=== PATIENT | male | born 1960 | race Caucasian/White ===

== ENCOUNTER 2017-08-27 10:36 | Observation (INO) ==
[2017-08-27] MEDS ORDERED: ENOXAPARIN 100 MG/ML SYRINGE SUBCUT STA (11:12)
[2017-08-27 11:28] LABS: Basophils # 0.1 10*3/uL (0.0-0.2); Basophils % 0.7 % (0.0-0.8); Eosinophils # 0.2 10*3/uL (0.0-0.87); Eosinophils % 3.5 % (0.00-10.9); Hemoglobin 11.9 GM/DL (14.0-18.0); Immature Granulocytes % 0.3 %; Immature Granulocytes Absolute 0.02 #; Lymphocytes % 14.1 % (21.2-54.2); Mean Corpuscular Hemoglobin 32 PG (27-34); Mean Corpuscular Volume 93.3 FL (87-102); Mean Platelet Volume 9.6 FL (9.6-12.0); Monocytes # 0.9 10*3/uL (0.11-0.8); Monocytes % 12.8 % (1.7-12.7); Neutrophils # 4.7 10*3/uL (1.4-7.4); Neutrophils % 68.6 % (38.7-73.9); Platelet Count 207 T/CUMM (130-400); Red Blood Count 3.75 MC/CUMM (3.8-5.5); Red Cell Distribution Width 12.9 % (9.3-17.3); White Blood Count 6.9 T/CUMM (4-12)
[2017-08-27] MEDS ORDERED: ENOXAPARIN 120 MG/0.8 ML SYRINGE SUBCUT ONE (11:45)
[2017-08-27 12:09] LABS: Bilirubin,Total 1.4 MG/DL (0.2-1.0); Calcium 10.2 MG/DL (8.5-10.1); Osmolality,Calculated 281.8 MOS/KG (273-304); Potassium 4.1 MMOL/L (3.5-5.1); Total Protein 7.6 G/DL (6.4-8.3)
[2017-08-27] MEDS ORDERED: MAGNESIUM SULF RIDER 4 GM in PREMIX 1 EACH IV PRN (14:04)
[2017-08-27] MEDS ORDERED: MAGNESIUM SULF RIDER 2 GM in PREMIX 1 EACH IV PRN (14:04)
[2017-08-27] MEDS ORDERED: ACETAMINOPHEN 325 MG TABLET PO PRN (14:24)
[2017-08-27] MEDS ORDERED: ZALEPLON 5 MG CAPSULE PO PRN (14:24)
[2017-08-27] MEDS ORDERED: ONDANSETRON 4 MG/2 ML VIAL IV PRN (14:24)
[2017-08-27] MEDS ORDERED: guaiFENesin/DM ER 600-30 MG TABLET PO PRN (14:24)
[2017-08-27] MEDS ORDERED: BISACODYL 5 MG TABLET PO PRN (14:24)
[2017-08-27 15:23] LABS: Troponin I Only < 0.015 NG/ML (0.00-0.045)
[2017-08-27] MEDS: SEVELAMER CARBONATE 800 MG TABLET PO SCH (17:15)
[2017-08-27] MEDS: NITROGLYCERIN 2% OINT 1 INCH/GM PACK TOP SCH (17:15)
[2017-08-27] MEDS: CINACALCET 30 MG TABLET PO SCH (17:15)
[2017-08-27 18:33] LABS: Troponin I Only < 0.015 NG/ML (0.00-0.045)
[2017-08-27] MEDS ORDERED: ATORVASTATIN 20 MG TABLET PO SCH (21:00)
[2017-08-27] MEDS ORDERED: DILTIAZEM CD 120 MG CAPSULE PO SCH (21:00)
[2017-08-27] MEDS: CARVEDILOL 6.25 MG TABLET PO SCH (21:41)
[2017-08-28] MEDS: NITROGLYCERIN 2% OINT 1 INCH/GM PACK TOP SCH ×2 (00:22→09:20)
[2017-08-28 06:01] LABS: Basophils # 0.1 10*3/uL (0.0-0.2); Basophils % 0.9 % (0.0-0.8); Eosinophils # 0.3 10*3/uL (0.0-0.87); Eosinophils % 4.4 % (0.00-10.9); Hematocrit 31.1 VOL% (42.0-52.0); Immature Granulocytes % 0.7 %; Immature Granulocytes Absolute 0.04 #; Lymphocytes # 1.2 10*3/uL (1.4-4.0); Lymphocytes % 20.3 % (21.2-54.2); Mean Corpuscular HGB Conc 35.4 GM/DL (32-36); Mean Corpuscular Hemoglobin 32 PG (27-34); Mean Corpuscular Volume 91.7 FL (87-102); Mean Platelet Volume 9.9 FL (9.6-12.0); Monocytes # 0.8 10*3/uL (0.11-0.8); Monocytes % 13.8 % (1.7-12.7); Neutrophils # 3.5 10*3/uL (1.4-7.4); Neutrophils % 59.9 % (38.7-73.9); Platelet Count 194 T/CUMM (130-400); Red Blood Count 3.39 MC/CUMM (3.8-5.5); Red Cell Distribution Width 12.7 % (9.3-17.3); White Blood Count 5.9 T/CUMM (4-12)
[2017-08-28 06:38] LABS: Calcium 9.1 MG/DL (8.5-10.1); Osmolality,Calculated 293.4 MOS/KG (273-304); Potassium 3.9 MMOL/L (3.5-5.1)
[2017-08-28 06:44] LABS: Risk Ratio 4.46; VLDL CHOLESTEROL 48.4 MG/DL
[2017-08-28 08:48] VITALS: BP 136/77
[2017-08-28] MEDS ORDERED: CLOPIDOGREL 75 MG TABLET PO SCH (09:00)
[2017-08-28] MEDS ORDERED: CINACALCET 30 MG TABLET PO SCH (09:00)
[2017-08-28] MEDS ORDERED: ASPIRIN EC 81 MG TABLET PO SCH (09:00)
[2017-08-28] MEDS ORDERED: PANTOPRAZOLE 40 MG TABLET PO SCH (09:00)
[2017-08-28] MEDS: CINACALCET 30 MG TABLET PO SCH ×2 (09:19→09:23)
[2017-08-28] MEDS: CARVEDILOL 6.25 MG TABLET PO SCH (09:19)
[2017-08-28] MEDS: SEVELAMER CARBONATE 800 MG TABLET PO SCH (09:19)
[2017-08-29] MEDS ORDERED: DILTIAZEM CD 120 MG CAPSULE PO SCH (09:00)
== END 2017-08-28 10:38 | disposition home or self-care (01) ==
LOC: N.EDINP 10:36 → N.ED 10:36 → N.EDINP 13:53 → N.TELES 13:59
PROVIDERS: ADMIT Internal Medicine Cardiovascular Disease; ATTEND Internal Medicine Cardiovascular Disease

== ENCOUNTER 2021-01-30 21:39 | Observation (INO) ==
[2021-01-30] MEDS ORDERED: ONDANSETRON 4 MG/2 ML VIAL ONE (22:10)
[2021-01-30] MEDS ORDERED: MORPHINE 2 MG/1 ML SYRINGE ONE (22:11)
[2021-01-30] MEDS ORDERED: HYDROmorphone 2 MG/1 ML VIAL ONE (22:14)
[2021-01-30] MEDS ORDERED: NITROGLYCERIN 2% OINT 1 INCH/GM PACK TOP STA (22:15)
[2021-01-30] MEDS ORDERED: ONDANSETRON 4 MG/2 ML VIAL IV STA (22:15)
[2021-01-30] MEDS ORDERED: HYDROmorphone 2 MG/1 ML VIAL IV STA (22:15)
[2021-01-30] MEDS ORDERED: ALUM/MAG/SIMETH/LIDO VISC 1:1 30 ML BOTTLE PO STA (22:15)
[2021-01-30 22:25] LABS: Basophils % 0.4 % (0.0-0.8); Eosinophils % 0.4 % (0.00-10.9); Hematocrit 29.2 VOL% (42.0-52.0); Hemoglobin 9.9 GM/DL (14.0-18.0); Immature Granulocytes % 0.8 %; Immature Granulocytes Absolute 0.02 #; Lymphocytes # 0.5 10*3/uL (1.4-4.0); Lymphocytes % 19.2 % (21.2-54.2); Mean Corpuscular HGB Conc 33.9 GM/DL (32-36); Mean Corpuscular Volume 94.2 FL (87-102); Mean Platelet Volume 10.1 FL (9.6-12.0); Monocytes % 15.1 % (1.7-12.7); Neutrophils % 64.1 % (38.7-73.9); Platelet Count 101 T/CUMM (130-400); Red Cell Distribution Width 12.2 % (9.3-17.3); White Blood Count 2.4 T/CUMM (4-12)
[2021-01-30 22:34] LABS: INR 1.1; PT Patient Result 11.8 SECS (10.5-12.0)
[2021-01-30 22:45] LABS: Calcium 8.4 MG/DL (8.5-10.1); Osmolality,Calculated 281.4 MOS/KG (273-304); Potassium 3.7 MMOL/L (3.5-5.1)
[2021-01-30] MEDS ORDERED: ZALEPLON 5 MG CAPSULE PO PRN (23:09)
[2021-01-30] MEDS ORDERED: PROMETHAZINE 25 MG TABLET PO PRN (23:09)
[2021-01-30] MEDS ORDERED: hydrALAZINE 20 MG/1 ML VIAL IV PRN (23:09)
[2021-01-30] MEDS ORDERED: GLUCAGON 1 MG VIAL IM PRN ×2 (23:09)
[2021-01-30] MEDS ORDERED: guaiFENesin/DM ER 600-30 MG TABLET PO PRN (23:09)
[2021-01-30] MEDS ORDERED: ALBUTEROL 2.5 MG/3 ML NEB RESP TX PRN (23:09)
[2021-01-30] MEDS ORDERED: NICOTINE 21 MG/24 HR PATCH TRANSDERM PRN (23:09)
[2021-01-30] MEDS ORDERED: ONDANSETRON 4 MG/2 ML VIAL IV PRN (23:09)
[2021-01-30] MEDS ORDERED: diphenhydrAMINE CAP 25 MG CAPSULE PO PRN (23:09)
[2021-01-30] MEDS ORDERED: DEXTROSE 50% 25 GM/50 ML VIAL IV PRN ×2 (23:09)
[2021-01-30] MEDS ORDERED: HYDROmorphone 2 MG/1 ML VIAL IV PRN (23:10)
[2021-01-30] MEDS ORDERED: NITROGLYCERIN SL 0.4 MG TABLET SL PRN (23:11)
[2021-01-31] MEDS: ATORVASTATIN 20 MG TABLET PO SCH ×2 (00:52→20:35)
[2021-01-31 06:12] LABS: Basophils % 0.5 % (0.0-0.8); Eosinophils % 0.5 % (0.00-10.9); Hematocrit 31.3 VOL% (42.0-52.0); Hemoglobin 10.4 GM/DL (14.0-18.0); Immature Granulocytes % 0.5 %; Immature Granulocytes Absolute 0.01 #; Lymphocytes # 0.5 10*3/uL (1.4-4.0); Lymphocytes % 27.5 % (21.2-54.2); Mean Corpuscular HGB Conc 33.2 GM/DL (32-36); Mean Corpuscular Volume 94.8 FL (87-102); Mean Platelet Volume 10.4 FL (9.6-12.0); Monocytes % 23.1 % (1.7-12.7); Neutrophils % 47.9 % (38.7-73.9); Platelet Count 72 T/CUMM (130-400); Red Cell Distribution Width 12.1 % (9.3-17.3); White Blood Count 1.8 T/CUMM (4-12)
[2021-01-31 06:37] LABS: Anisocytosis 1+; Atypical Lymphocytes Few; Band Neutrophils 14 % (0-10); Lymphocytes 26 % (20-55); Nucleated Red Blood Cells 3 (0-5); Platelet Estimate Decreased; Segmented Neutrophils 43 % (50-85); Total Cells Counted 100
[2021-01-31 06:50] LABS: Calcium 8.8 MG/DL (8.5-10.1); Potassium 3.9 MMOL/L (3.5-5.1); Risk Ratio 5.37; VLDL Cholesterol 32.8 MG/DL
[2021-01-31] MEDS: PANTOPRAZOLE 40 MG TABLET PO SCH (08:57)
[2021-01-31] MEDS: ASPIRIN EC 325 MG TABLET PO SCH (08:57)
[2021-01-31] MEDS: carvediloL 6.25 MG TABLET PO SCH ×2 (08:57→20:36)
[2021-01-31] MEDS: HEPARIN 5,000 UNIT/1 ML VIAL SUBCUT SCH ×2 (08:58→20:37)
[2021-01-31] MEDS: BISACODYL 5 MG TABLET PO SCH (08:58)
[2021-01-31] MEDS: CINACALCET 30 MG TABLET PO SCH (08:59)
[2021-01-31] MEDS: INSULIN LISPRO 100 UNIT/ML SUBCUT SCH ×4 (09:58→20:00)
[2021-01-31] MEDS ORDERED: SODIUM CHLORIDE 0.9% 500 ML IV ONE (13:36)
[2021-01-31] MEDS ORDERED: VANCOMYCIN INJ 1,000 MG in SODIUM CHLORIDE 0.9% 250 ML IV SCH (14:00)
[2021-01-31] MEDS ORDERED: VANCOMYCIN INJ 2,500 MG in SODIUM CHLORIDE 0.9% 500 ML IV ONE (15:00)
[2021-01-31] MEDS: cefTRIAXone 2,000 MG in SODIUM CHLORIDE 0.9% 100 ML IV SCH (15:30)
[2021-01-31] MEDS: RENVELA PO SCH (16:49)
[2021-01-31] MEDS: AZITHROMYCIN INJ 500 MG in SODIUM CHLORIDE 0.9% 250 ML IV SCH (16:50)
[2021-01-31] MEDS ORDERED: SEVELAMER CARBONATE 800 MG TABLET PO SCH (17:00)
[2021-02-01 06:28] LABS: Basophils % 0.6 % (0.0-0.8); Eosinophils % 1.2 % (0.00-10.9); Hematocrit 26.8 VOL% (42.0-52.0); Hemoglobin 9.1 GM/DL (14.0-18.0); Immature Granulocytes % 0.6 %; Immature Granulocytes Absolute 0.01 #; Lymphocytes # 0.3 10*3/uL (1.4-4.0); Lymphocytes % 17.9 % (21.2-54.2); Mean Platelet Volume 10.6 FL (9.6-12.0); Monocytes % 9.2 % (1.7-12.7); Neutrophils % 70.5 % (38.7-73.9); Platelet Count 68 T/CUMM (130-400); Red Blood Count 2.82 MC/CUMM (3.8-5.5); Red Cell Distribution Width 12.3 % (9.3-17.3); White Blood Count 1.7 T/CUMM (4-12)
[2021-02-01 06:58] LABS: Calcium 9.4 MG/DL (8.5-10.1); Osmolality,Calculated 282.8 MOS/KG (273-304); Potassium 4.9 MMOL/L (3.5-5.1)
[2021-02-01 07:21] LABS: Eosinophils 2 % (0-10); Lymphocytes 19 % (20-55); Platelet Estimate Decreased; Segmented Neutrophils 73 % (50-85); Total Cells Counted 100
[2021-02-01] MEDS: RENVELA PO SCH ×3 (08:21→18:22)
[2021-02-01] MEDS: ASPIRIN EC 325 MG TABLET PO SCH (08:22)
[2021-02-01] MEDS: BISACODYL 5 MG TABLET PO SCH (08:23)
[2021-02-01] MEDS: PANTOPRAZOLE 40 MG TABLET PO SCH (08:23)
[2021-02-01] MEDS: INSULIN LISPRO 100 UNIT/ML SUBCUT SCH ×4 (08:24→21:05)
[2021-02-01] MEDS: carvediloL 6.25 MG TABLET PO SCH ×2 (08:24→21:04)
[2021-02-01 09:42] LABS: Albumin 2.8 G/DL (3.4-5.0); Bilirubin,Total 0.4 MG/DL (0.20-1.00); Calcium 9.1 MG/DL (8.5-10.1); Osmolality,Calculated 282.8 MOS/KG (273-304); Potassium 4.9 MMOL/L (3.5-5.1); Total Protein 6.2 G/DL (6.4-8.2)
[2021-02-01] MEDS: CINACALCET 30 MG TABLET PO SCH (14:10)
[2021-02-01] MEDS: HEPARIN 5,000 UNIT/1 ML VIAL SUBCUT SCH ×2 (14:10→21:04)
[2021-02-01] MEDS: cefTRIAXone 2,000 MG in SODIUM CHLORIDE 0.9% 100 ML IV SCH (14:12)
[2021-02-01] MEDS: AZITHROMYCIN INJ 500 MG in SODIUM CHLORIDE 0.9% 250 ML IV SCH (15:49)
[2021-02-01] MEDS ORDERED: VANCOMYCIN INJ 750 MG in SODIUM CHLORIDE 0.9% 250 ML IV ONE (17:00)
[2021-02-01] MEDS ORDERED: VANCOMYCIN INJ 750 MG in SODIUM CHLORIDE 0.9% 250 ML IV PRN (18:00)
[2021-02-01] MEDS: CYPROHEPTADINE 4 MG TABLET PO SCH (21:04)
[2021-02-01] MEDS: LUBIPROSTONE 8 MCG CAPSULE PO SCH (21:04)
[2021-02-01] MEDS: DOCUSATE SODIUM 100 MG CAPSULE PO SCH (21:04)
[2021-02-01] MEDS: ATORVASTATIN 20 MG TABLET PO SCH (21:04)
[2021-02-01] MEDS: POLYETHYLENE GLYCOL POWDER 17 GM PACK PO SCH (21:15)
[2021-02-01] MEDS: ACETAMINOPHEN 325 MG TABLET PO PRN (23:08)
[2021-02-02 06:37] LABS: Basophils % 0.6 % (0.0-0.8); Hematocrit 27.1 VOL% (42.0-52.0); Hemoglobin 8.7 GM/DL (14.0-18.0); Immature Granulocytes % 1.2 %; Immature Granulocytes Absolute 0.02 #; Lymphocytes # 0.3 10*3/uL (1.4-4.0); Lymphocytes % 19.1 % (21.2-54.2); Mean Corpuscular HGB Conc 32.1 GM/DL (32-36); Mean Corpuscular Volume 96.8 FL (87-102); Mean Platelet Volume 10.7 FL (9.6-12.0); Monocytes % 8.7 % (1.7-12.7); Neutrophils % 70.4 % (38.7-73.9); Red Cell Distribution Width 12.3 % (9.3-17.3); White Blood Count 1.7 T/CUMM (4-12)
[2021-02-02 06:45] LABS: Platelet Count 79 T/CUMM (130-400)
[2021-02-02 06:54] LABS: Calcium 8.7 MG/DL (8.5-10.1); Osmolality,Calculated 280.8 MOS/KG (273-304); Potassium 4.4 MMOL/L (3.5-5.1)
[2021-02-02 06:58] LABS: Hypochromasia 1+; Microcytosis 1+; Platelet Estimate Decreased
[2021-02-02 07:13] LABS: % Iron Saturation 19.1 % (18-50); Ferritin 2454.1 ng/ml (26-388)
[2021-02-02 07:21] LABS: Vitamin B12 513 PG/ML (211-911)
[2021-02-02 07:52] LABS: Sedimentation Rate-Westergren 80 MM/HR (0-20)
[2021-02-02] MEDS: INSULIN LISPRO 100 UNIT/ML SUBCUT SCH ×4 (08:02→21:41)
[2021-02-02] MEDS: DOCUSATE SODIUM 100 MG CAPSULE PO SCH ×2 (08:41→21:41)
[2021-02-02] MEDS: POLYETHYLENE GLYCOL POWDER 17 GM PACK PO SCH ×2 (08:41→21:41)
[2021-02-02] MEDS: RENVELA PO SCH ×3 (08:41→16:43)
[2021-02-02] MEDS: PANTOPRAZOLE 40 MG TABLET PO SCH (08:42)
[2021-02-02] MEDS: BISACODYL 5 MG TABLET PO SCH (08:42)
[2021-02-02] MEDS: CINACALCET 30 MG TABLET PO SCH (08:42)
[2021-02-02] MEDS: CYPROHEPTADINE 4 MG TABLET PO SCH ×2 (08:43→21:39)
[2021-02-02] MEDS: ASPIRIN EC 325 MG TABLET PO SCH (08:43)
[2021-02-02] MEDS: carvediloL 6.25 MG TABLET PO SCH ×2 (08:43→21:40)
[2021-02-02] MEDS: HEPARIN 5,000 UNIT/1 ML VIAL SUBCUT SCH ×2 (08:43→21:41)
[2021-02-02] MEDS: LUBIPROSTONE 8 MCG CAPSULE PO SCH (08:49)
[2021-02-02] MEDS: LINACLOTIDE 145 MCG CAPSULE PO SCH (08:50)
[2021-02-02] MEDS: cefTRIAXone 2,000 MG in SODIUM CHLORIDE 0.9% 100 ML IV SCH (15:28)
[2021-02-02] MEDS: AZITHROMYCIN INJ 500 MG in SODIUM CHLORIDE 0.9% 250 ML IV SCH (16:41)
[2021-02-02] MEDS: ACETAMINOPHEN 325 MG TABLET PO PRN (21:39)
[2021-02-02] MEDS: ATORVASTATIN 20 MG TABLET PO SCH (21:40)
[2021-02-03 05:07] LABS: Calcium 8.4 MG/DL (8.5-10.1); Potassium 4.1 MMOL/L (3.5-5.1)
[2021-02-03 05:12] LABS: Basophils % 0.5 % (0.0-0.8); Hematocrit 26.9 VOL% (42.0-52.0); Immature Granulocytes % 1.1 %; Immature Granulocytes Absolute 0.02 #; Lymphocytes # 0.4 10*3/uL (1.4-4.0); Lymphocytes % 18.9 % (21.2-54.2); Mean Corpuscular HGB Conc 33.5 GM/DL (32-36); Mean Corpuscular Volume 95.1 FL (87-102); Mean Platelet Volume 10.8 FL (9.6-12.0); Monocytes % 10.5 % (1.7-12.7); Platelet Count 69 T/CUMM (130-400); Red Blood Count 2.83 MC/CUMM (3.8-5.5); Red Cell Distribution Width 12.2 % (9.3-17.3); White Blood Count 1.9 T/CUMM (4-12)
[2021-02-03 05:39] LABS: Lymphocytes 15 % (20-55); Platelet Estimate Decreased; Segmented Neutrophils 79 % (50-85); Total Cells Counted 100
[2021-02-03] MEDS: LUBIPROSTONE 8 MCG CAPSULE PO SCH (07:34)
[2021-02-03] MEDS: INSULIN LISPRO 100 UNIT/ML SUBCUT SCH ×2 (08:13→11:13)
[2021-02-03] MEDS: carvediloL 6.25 MG TABLET PO SCH (08:39)
[2021-02-03] MEDS: POLYETHYLENE GLYCOL POWDER 17 GM PACK PO SCH (08:39)
[2021-02-03] MEDS: CYPROHEPTADINE 4 MG TABLET PO SCH (08:44)
[2021-02-03] MEDS: BISACODYL 5 MG TABLET PO SCH ×2 (08:44→08:52)
[2021-02-03] MEDS: ASPIRIN EC 325 MG TABLET PO SCH (08:44)
[2021-02-03] MEDS: RENVELA PO SCH ×2 (08:44→11:15)
[2021-02-03] MEDS: CINACALCET 30 MG TABLET PO SCH (08:44)
[2021-02-03] MEDS: HEPARIN 5,000 UNIT/1 ML VIAL SUBCUT SCH (08:44)
[2021-02-03] MEDS: LINACLOTIDE 145 MCG CAPSULE PO SCH (08:44)
[2021-02-03] MEDS: PANTOPRAZOLE 40 MG TABLET PO SCH (08:44)
[2021-02-03] MEDS: DOCUSATE SODIUM 100 MG CAPSULE PO SCH ×2 (08:44→08:51)
[2021-02-03 11:28] VITALS: BP 105/43
[2021-02-03] MEDS: ACETAMINOPHEN 325 MG TABLET PO PRN (12:02)
[2021-02-03] MEDS ORDERED: LEVOFLOXACIN 500 MG TABLET PO SCH (13:00)
[2021-02-03] MEDS ORDERED: carvediloL 3.125 MG TABLET PO SCH (21:00)
[2021-02-04 12:05] LABS: Hemoglobin A1 (Alkaline) 96.5 % (96.5-98.5); Hemoglobin A2 (Alkaline) 3.5 % (1.5-3.5)
[2021-02-06 11:27] LABS: 25-Hydroxy D Total 38 ng/mL; 25-Hydroxy D2 < 4.0 ng/mL; 25-Hydroxy D3 38 ng/mL
== END 2021-02-03 13:37 | disposition home or self-care (01) ==
LOC: EDBD → EDUNIT# → N.EDINP 21:39 → N.ED 21:39 → N.EDINP 01-31 01:00 → N.TELEN 01-31 01:42 → SUATTDRO 01-31 14:59
PROVIDERS: ADMIT Internal Medicine; ATTEND Hospitalist

== ENCOUNTER 2021-02-06 15:11 | Inpatient (IN) ==
[2021-02-06] MEDS ORDERED: SODIUM CHLORIDE 0.9% 1,000 ML IV STA (16:00)
[2021-02-06 16:12] LABS: Basophils % 0.3 % (0.0-0.8); Hematocrit 32.8 VOL% (42.0-52.0); Hemoglobin 10.9 GM/DL (14.0-18.0); Immature Granulocytes % 1.3 %; Immature Granulocytes Absolute 0.05 #; Lymphocytes # 0.2 10*3/uL (1.4-4.0); Lymphocytes % 4.8 % (21.2-54.2); Mean Corpuscular HGB Conc 33.2 GM/DL (32-36); Mean Corpuscular Volume 94.3 FL (87-102); Monocytes % 4.5 % (1.7-12.7); Neutrophils % 89.1 % (38.7-73.9); Platelet Count 145 T/CUMM (130-400); Red Blood Count 3.48 MC/CUMM (3.8-5.5); Red Cell Distribution Width 12.4 % (9.3-17.3)
[2021-02-06] MEDS ORDERED: AZITHROMYCIN 250 MG TABLET PO STA (16:12)
[2021-02-06] MEDS ORDERED: cefTRIAXone 1,000 MG in SODIUM CHLORIDE 0.9% 100 ML IV STA (16:12)
[2021-02-06] MEDS ORDERED: ACETAMINOPHEN 500 MG TABLET ONE (16:14)
[2021-02-06 16:39] LABS: Albumin 2.9 G/DL (3.4-5.0); Bilirubin,Total 0.5 MG/DL (0.20-1.00); Calcium 9.8 MG/DL (8.5-10.1); Osmolality,Calculated 274.8 MOS/KG (273-304); Potassium 3.3 MMOL/L (3.5-5.1); Total Protein 7.6 G/DL (6.4-8.2)
[2021-02-06 17:09] LABS: Band Neutrophils 5 % (0-10); Lymphocytes 4 % (20-55); Segmented Neutrophils 87 % (50-85); Total Cells Counted 100
[2021-02-06 17:10] LABS: Anisocytosis Slight; Atypical Lymphocytes 1+; Macrocytosis Slight; Microcytosis Slight; Platelet Estimate Adequate
[2021-02-06] MEDS ORDERED: DEXTROSE 50% 25 GM/50 ML VIAL IV PRN (17:40)
[2021-02-06] MEDS ORDERED: ONDANSETRON 4 MG/2 ML VIAL IV PRN (17:40)
[2021-02-06] MEDS ORDERED: GLUCAGON 1 MG VIAL IM PRN (17:40)
[2021-02-06] MEDS ORDERED: LEVOFLOXACIN INJ 750 MG/150 ML PREMIX IV ONE (17:49)
[2021-02-06] MEDS ORDERED: PIPERACILLIN/TAZOBACTAM 2,250 MG in SODIUM CHLORIDE 0.9% 100 ML IV SCH (18:00)
[2021-02-06] MEDS ORDERED: POLYETHYLENE GLYCOL POWDER 17 GM PACK PO PRN (18:01)
[2021-02-06] MEDS ORDERED: POTASSIUM CHLORIDE 20 MEQ TABLET PO PRN (18:01)
[2021-02-06 18:25] LABS: ABG Base Excess 8.5 MMOL/L (-2.5-2.5); ABG HCO3 32.2 MMOL/L (20-26); ABG Oxygen Saturation 91.6 % (95-100); ABG PCO2 37.1 MM HG (35-48); ABG PO2 60.2 MM HG (80-95)
[2021-02-06] MEDS: HEPARIN 5,000 UNIT/1 ML VIAL SUBCUT SCH (19:46)
[2021-02-06] MEDS: ALBUTEROL/IPRATROPIUM 3 ML NEB RESP TX SCH (19:49)
[2021-02-06] MEDS: ATORVASTATIN 20 MG TABLET PO SCH (22:45)
[2021-02-06] MEDS: PIPERACILLIN/TAZOBACTAM 3,375 MG in SODIUM CHLORIDE 0.9% 100 ML IV SCH (22:45)
[2021-02-06] MEDS: DOCUSATE SODIUM 100 MG CAPSULE PO SCH (22:45)
[2021-02-06] MEDS: carvediloL 3.125 MG TABLET PO SCH (22:46)
[2021-02-06] MEDS: ACETAMINOPHEN 325 MG TABLET PO PRN (23:50)
[2021-02-07] MEDS: ALBUTEROL/IPRATROPIUM 3 ML NEB RESP TX SCH ×4 (00:39→18:22)
[2021-02-07 05:04] LABS: Basophils % 0.3 % (0.0-0.8); Hematocrit 26.4 VOL% (42.0-52.0); Immature Granulocytes % 2.5 %; Lymphocytes # 0.4 10*3/uL (1.4-4.0); Lymphocytes % 9.4 % (21.2-54.2); Mean Corpuscular Volume 94.3 FL (87-102); Mean Platelet Volume 10.2 FL (9.6-12.0); Monocytes % 5.3 % (1.7-12.7); Neutrophils % 82.5 % (38.7-73.9); Platelet Count 149 T/CUMM (130-400); Red Cell Distribution Width 12.4 % (9.3-17.3)
[2021-02-07 05:06] LABS: Hemoglobin 8.7 GM/DL (14.0-18.0)
[2021-02-07 05:16] LABS: Hypochromasia 1+; Lymphocytes 7 % (20-55); Microcytosis 1+; Nucleated Red Blood Cells 1 (0-5); Platelet Estimate Adequate; Segmented Neutrophils 89 % (50-85); Total Cells Counted 100
[2021-02-07 05:20] LABS: Calcium 9.6 MG/DL (8.5-10.1); Osmolality,Calculated 279.7 MOS/KG (273-304); Potassium 4.2 MMOL/L (3.5-5.1)
[2021-02-07] MEDS: HEPARIN 5,000 UNIT/1 ML VIAL SUBCUT SCH ×2 (05:31→18:21)
[2021-02-07] MEDS: PIPERACILLIN/TAZOBACTAM 3,375 MG in SODIUM CHLORIDE 0.9% 100 ML IV SCH (08:15)
[2021-02-07] MEDS: SEVELAMER CARBONATE 800 MG TABLET PO SCH ×4 (08:15→19:34)
[2021-02-07] MEDS: PANTOPRAZOLE 40 MG TABLET PO SCH (09:29)
[2021-02-07] MEDS: ASPIRIN EC 81 MG TABLET PO SCH (09:30)
[2021-02-07] MEDS: DOCUSATE SODIUM 100 MG CAPSULE PO SCH ×2 (09:30→20:41)
[2021-02-07] MEDS: carvediloL 3.125 MG TABLET PO SCH ×2 (09:31→20:41)
[2021-02-07] MEDS: LINACLOTIDE 145 MCG CAPSULE PO SCH (09:31)
[2021-02-07] MEDS: cefTRIAXone 1,000 MG in SODIUM CHLORIDE 0.9% 100 ML IV SCH (16:54)
[2021-02-07] MEDS: AZITHROMYCIN INJ 500 MG in SODIUM CHLORIDE 0.9% 250 ML IV SCH (18:21)
[2021-02-07] MEDS: ACETAMINOPHEN 325 MG TABLET PO PRN (20:41)
[2021-02-07] MEDS: ATORVASTATIN 20 MG TABLET PO SCH (20:41)
[2021-02-08] MEDS: ALBUTEROL/IPRATROPIUM 3 ML NEB RESP TX SCH ×4 (01:03→19:51)
[2021-02-08 05:18] LABS: Bacteria,Urine Occasional /HPF (Few); Bilirubin,Urine Negative (Negative); Blood, Urine Negative (Negative); Glucose,Urine (UA) 50 mg/dL (Negative); Ketones,Urine Negative (Negative); Nitrite,Urine Negative (Negative); Protein,Urine >=500 MG/DL; RBC,Urine 2 /HPF (0-4); Urine Appearance CLOUDY (Clear); Urine Color Yellow (Yellow); Urine Specific Gravity 1.012 (1.001-1.035); Urine Urobilinogen < 2.0 EU/DL (0.2-1.0)
[2021-02-08] MEDS: HEPARIN 5,000 UNIT/1 ML VIAL SUBCUT SCH ×2 (05:50→17:04)
[2021-02-08] MEDS: ASPIRIN EC 81 MG TABLET PO SCH (08:58)
[2021-02-08] MEDS: carvediloL 3.125 MG TABLET PO SCH ×2 (08:58→20:55)
[2021-02-08] MEDS: PANTOPRAZOLE 40 MG TABLET PO SCH (08:58)
[2021-02-08] MEDS: ACETAMINOPHEN 325 MG TABLET PO PRN ×2 (09:01→16:58)
[2021-02-08] MEDS: LINACLOTIDE 145 MCG CAPSULE PO SCH (09:41)
[2021-02-08] MEDS: DOCUSATE SODIUM 100 MG CAPSULE PO SCH ×2 (09:41→20:59)
[2021-02-08] MEDS: SEVELAMER CARBONATE 800 MG TABLET PO SCH ×3 (09:41→16:35)
[2021-02-08] MEDS: cefTRIAXone 1,000 MG in SODIUM CHLORIDE 0.9% 100 ML IV SCH (16:34)
[2021-02-08] MEDS: AZITHROMYCIN INJ 500 MG in SODIUM CHLORIDE 0.9% 250 ML IV SCH (17:07)
[2021-02-08] MEDS ORDERED: LEVOFLOXACIN INJ 500 MG/100 ML PREMIX IV SCH (18:00)
[2021-02-08] MEDS: ATORVASTATIN 20 MG TABLET PO SCH (20:55)
[2021-02-09 05:48] LABS: Basophils % 0.2 % (0.0-0.8); Eosinophils % 0.2 % (0.00-10.9); Hematocrit 25.8 VOL% (42.0-52.0); Hemoglobin 8.4 GM/DL (14.0-18.0); Immature Granulocytes Absolute 0.12 #; Lymphocytes # 0.3 10*3/uL (1.4-4.0); Lymphocytes % 7.7 % (21.2-54.2); Mean Corpuscular HGB Conc 32.6 GM/DL (32-36); Mean Corpuscular Volume 96.3 FL (87-102); Monocytes % 5.7 % (1.7-12.7); Neutrophils % 83.2 % (38.7-73.9); Platelet Count 197 T/CUMM (130-400); Red Blood Count 2.68 MC/CUMM (3.8-5.5); Red Cell Distribution Width 12.7 % (9.3-17.3)
[2021-02-09 06:20] LABS: Calcium 9.8 MG/DL (8.5-10.1); Osmolality,Calculated 281.7 MOS/KG (273-304); Potassium 3.9 MMOL/L (3.5-5.1)
[2021-02-09] MEDS: HEPARIN 5,000 UNIT/1 ML VIAL SUBCUT SCH ×2 (06:25→17:32)
[2021-02-09] MEDS: ALBUTEROL/IPRATROPIUM 3 ML NEB RESP TX SCH ×4 (07:09→19:28)
[2021-02-09] MEDS: SEVELAMER CARBONATE 800 MG TABLET PO SCH ×3 (08:08→16:01)
[2021-02-09] MEDS: carvediloL 3.125 MG TABLET PO SCH ×2 (08:09→21:39)
[2021-02-09] MEDS: PANTOPRAZOLE 40 MG TABLET PO SCH (08:09)
[2021-02-09] MEDS: ASPIRIN EC 81 MG TABLET PO SCH (08:09)
[2021-02-09] MEDS: DOCUSATE SODIUM 100 MG CAPSULE PO SCH ×2 (08:37→21:44)
[2021-02-09] MEDS: LINACLOTIDE 145 MCG CAPSULE PO SCH (08:37)
[2021-02-09] MEDS: FLUCONAZOLE INJ 100 MG/50 ML PREMIX IV SCH (11:12)
[2021-02-09] MEDS: ACETAMINOPHEN 325 MG TABLET PO PRN ×2 (11:29→21:39)
[2021-02-09] MEDS: cefTRIAXone 1,000 MG in SODIUM CHLORIDE 0.9% 100 ML IV SCH (16:00)
[2021-02-09] MEDS: AZITHROMYCIN INJ 500 MG in SODIUM CHLORIDE 0.9% 250 ML IV SCH (16:40)
[2021-02-09] MEDS: ATORVASTATIN 20 MG TABLET PO SCH (21:39)
[2021-02-10] MEDS: ALBUTEROL/IPRATROPIUM 3 ML NEB RESP TX SCH ×4 (00:35→19:12)
[2021-02-10] MEDS: HEPARIN 5,000 UNIT/1 ML VIAL SUBCUT SCH ×2 (06:11→17:10)
[2021-02-10 06:41] LABS: Basophils % 0.3 % (0.0-0.8); Eosinophils % 0.7 % (0.00-10.9); Hematocrit 24.5 VOL% (42.0-52.0); Hemoglobin 8.1 GM/DL (14.0-18.0); Immature Granulocytes Absolute 0.09 #; Lymphocytes # 0.4 10*3/uL (1.4-4.0); Lymphocytes % 13.1 % (21.2-54.2); Mean Corpuscular HGB Conc 33.1 GM/DL (32-36); Mean Platelet Volume 9.8 FL (9.6-12.0); Monocytes % 6.2 % (1.7-12.7); Neutrophils % 76.7 % (38.7-73.9); Platelet Count 205 T/CUMM (130-400); Red Blood Count 2.58 MC/CUMM (3.8-5.5); Red Cell Distribution Width 12.4 % (9.3-17.3); White Blood Count 3.1 T/CUMM (4-12)
[2021-02-10 07:00] LABS: Potassium 3.9 MMOL/L (3.5-5.1)
[2021-02-10] MEDS: ASPIRIN EC 81 MG TABLET PO SCH (09:29)
[2021-02-10] MEDS: carvediloL 3.125 MG TABLET PO SCH ×2 (09:30→20:55)
[2021-02-10] MEDS: PANTOPRAZOLE 40 MG TABLET PO SCH (09:30)
[2021-02-10] MEDS: SEVELAMER CARBONATE 800 MG TABLET PO SCH ×3 (09:41→16:48)
[2021-02-10] MEDS: DOCUSATE SODIUM 100 MG CAPSULE PO SCH ×2 (09:41→20:57)
[2021-02-10] MEDS: LINACLOTIDE 145 MCG CAPSULE PO SCH (09:41)
[2021-02-10 11:06] LABS: Lymphocytes 10 % (20-55); Platelet Estimate Normal; Segmented Neutrophils 84 % (50-85); Total Cells Counted 100
[2021-02-10] MEDS: FLUCONAZOLE INJ 100 MG/50 ML PREMIX IV SCH (12:08)
[2021-02-10] MEDS: cefTRIAXone 1,000 MG in SODIUM CHLORIDE 0.9% 100 ML IV SCH (15:50)
[2021-02-10] MEDS: AZITHROMYCIN INJ 500 MG in SODIUM CHLORIDE 0.9% 250 ML IV SCH (15:50)
[2021-02-10] MEDS: methylPREDNISolone SOD SUC 40 MG/1 ML VIAL IV SCH ×2 (17:10→22:06)
[2021-02-10] MEDS: ATORVASTATIN 20 MG TABLET PO SCH (20:55)
[2021-02-11] MEDS: ALBUTEROL/IPRATROPIUM 3 ML NEB RESP TX SCH ×4 (00:46→19:15)
[2021-02-11] MEDS: methylPREDNISolone SOD SUC 40 MG/1 ML VIAL IV SCH ×4 (05:49→22:01)
[2021-02-11] MEDS: HEPARIN 5,000 UNIT/1 ML VIAL SUBCUT SCH ×2 (05:49→17:17)
[2021-02-11] MEDS: ASPIRIN EC 81 MG TABLET PO SCH (08:12)
[2021-02-11] MEDS: carvediloL 3.125 MG TABLET PO SCH ×2 (08:12→20:14)
[2021-02-11] MEDS: SEVELAMER CARBONATE 800 MG TABLET PO SCH ×3 (08:12→17:16)
[2021-02-11] MEDS: PANTOPRAZOLE 40 MG TABLET PO SCH (08:12)
[2021-02-11] MEDS: DOCUSATE SODIUM 100 MG CAPSULE PO SCH ×2 (08:19→20:15)
[2021-02-11] MEDS: LINACLOTIDE 145 MCG CAPSULE PO SCH (08:19)
[2021-02-11] MEDS: FLUCONAZOLE INJ 100 MG/50 ML PREMIX IV SCH (16:18)
[2021-02-11] MEDS: cefTRIAXone 1,000 MG in SODIUM CHLORIDE 0.9% 100 ML IV SCH (17:18)
[2021-02-11] MEDS: AZITHROMYCIN INJ 500 MG in SODIUM CHLORIDE 0.9% 250 ML IV SCH (18:02)
[2021-02-11] MEDS: ATORVASTATIN 20 MG TABLET PO SCH (20:14)
[2021-02-11 22:20] LABS: ABG Base Excess 4.7 MMOL/L (-2.5-2.5); ABG HCO3 26.4 MMOL/L (20-26); ABG PCO2 30.7 MM HG (35-48); ABG PH 7.552 (7.35-7.45); ABG PO2 54.1 MM HG (80-95); ABG TCO2 27.3 MMOL/L (23-27)
[2021-02-11 22:22] LABS: ABG Oxygen Saturation 92.2 % (95-100)
[2021-02-12] MEDS: ACETAMINOPHEN 325 MG TABLET PO PRN ×2 (00:01→22:13)
[2021-02-12] MEDS: ALBUTEROL/IPRATROPIUM 3 ML NEB RESP TX SCH ×4 (00:20→18:12)
[2021-02-12] MEDS: methylPREDNISolone SOD SUC 40 MG/1 ML VIAL IV SCH ×3 (06:53→16:59)
[2021-02-12] MEDS: HEPARIN 5,000 UNIT/1 ML VIAL SUBCUT SCH ×2 (06:55→17:24)
[2021-02-12] MEDS: ASPIRIN EC 81 MG TABLET PO SCH (08:13)
[2021-02-12] MEDS: SEVELAMER CARBONATE 800 MG TABLET PO SCH ×3 (08:13→16:59)
[2021-02-12] MEDS: PANTOPRAZOLE 40 MG TABLET PO SCH (08:13)
[2021-02-12] MEDS: carvediloL 3.125 MG TABLET PO SCH ×2 (08:13→20:57)
[2021-02-12] MEDS: DOCUSATE SODIUM 100 MG CAPSULE PO SCH ×2 (08:13→20:59)
[2021-02-12] MEDS: LINACLOTIDE 145 MCG CAPSULE PO SCH (09:09)
[2021-02-12 09:28] LABS: ABG HCO3 26.1 MMOL/L (20-26); ABG Oxygen Saturation 93.1 % (95-100); ABG PH 7.488 (7.35-7.45); ABG PO2 68.8 MM HG (80-95); ABG TCO2 23.1 MMOL/L (23-27)
[2021-02-12 10:28] LABS: Hematocrit 26.7 VOL% (42.0-52.0); Hemoglobin 8.8 GM/DL (14.0-18.0); Immature Granulocytes Absolute 0.18 #; Lymphocytes # 0.3 10*3/uL (1.4-4.0); Lymphocytes % 4.9 % (21.2-54.2); Mean Corpuscular Volume 94.3 FL (87-102); Mean Platelet Volume 9.8 FL (9.6-12.0); Monocytes % 4.1 % (1.7-12.7); Platelet Count 296 T/CUMM (130-400); Red Blood Count 2.83 MC/CUMM (3.8-5.5); Red Cell Distribution Width 12.2 % (9.3-17.3); White Blood Count 6.1 T/CUMM (4-12)
[2021-02-12 10:43] LABS: Calcium 11.1 MG/DL (8.5-10.1); Osmolality,Calculated 290.1 MOS/KG (273-304)
[2021-02-12 10:49] LABS: Band Neutrophils 1 % (0-10); Hypochromasia 1+; Lymphocytes 3 % (20-55); Microcytosis 1+; Nucleated Red Blood Cells 1 (0-5); Platelet Estimate Adequate; Segmented Neutrophils 95 % (50-85); Total Cells Counted 100
[2021-02-12 11:12] LABS: Ferritin 4082.2 ng/ml (26-388)
[2021-02-12] MEDS: FLUCONAZOLE INJ 100 MG/50 ML PREMIX IV SCH (12:05)
[2021-02-12] MEDS: cefTRIAXone 1,000 MG in SODIUM CHLORIDE 0.9% 100 ML IV SCH (16:18)
[2021-02-12] MEDS: ATORVASTATIN 20 MG TABLET PO SCH (20:57)
[2021-02-13] MEDS: methylPREDNISolone SOD SUC 40 MG/1 ML VIAL IV SCH ×5 (00:32→22:47)
[2021-02-13] MEDS: ALBUTEROL/IPRATROPIUM 3 ML NEB RESP TX SCH (00:45)
[2021-02-13 04:15] LABS: ABG Base Excess 0.9 MMOL/L (-2.5-2.5); ABG HCO3 25.1 MMOL/L (20-26); ABG Oxygen Saturation 90.2 % (95-100); ABG PCO2 35.2 MM HG (35-48); ABG PH 7.452 (7.35-7.45); ABG PO2 62.8 MM HG (80-95); ABG TCO2 22.6 MMOL/L (23-27)
[2021-02-13 05:48] LABS: Basophils % 0.1 % (0.0-0.8); Hematocrit 26.6 VOL% (42.0-52.0); Hemoglobin 8.5 GM/DL (14.0-18.0); Immature Granulocytes % 4.2 %; Immature Granulocytes Absolute 0.34 #; Lymphocytes # 0.3 10*3/uL (1.4-4.0); Lymphocytes % 3.9 % (21.2-54.2); Mean Corpuscular Volume 95.3 FL (87-102); Mean Platelet Volume 9.8 FL (9.6-12.0); Monocytes % 4.4 % (1.7-12.7); Neutrophils % 87.4 % (38.7-73.9); Platelet Count 342 T/CUMM (130-400); Red Blood Count 2.79 MC/CUMM (3.8-5.5); Red Cell Distribution Width 12.3 % (9.3-17.3); White Blood Count 8.2 T/CUMM (4-12)
[2021-02-13] MEDS: HEPARIN 5,000 UNIT/1 ML VIAL SUBCUT SCH ×2 (06:01→18:30)
[2021-02-13 06:09] LABS: Hypochromasia 1+; Lymphocytes 5 % (20-55); Microcytosis 1+; Platelet Estimate Adequate; Segmented Neutrophils 90 % (50-85); Total Cells Counted 100
[2021-02-13 06:22] LABS: Calcium 11.5 MG/DL (8.5-10.1); Potassium 4.2 MMOL/L (3.5-5.1)
[2021-02-13] MEDS: PIPERACILLIN/TAZOBACTAM 3,375 MG in SODIUM CHLORIDE 0.9% 100 ML IV SCH ×2 (08:12→21:50)
[2021-02-13] MEDS: ZINC GLUCONATE 50 MG TABLET PO SCH (08:14)
[2021-02-13] MEDS: ASCORBIC ACID 500 MG TABLET PO SCH (08:14)
[2021-02-13] MEDS: ASPIRIN EC 81 MG TABLET PO SCH (08:14)
[2021-02-13] MEDS: CHOLECALCIFEROL 1,000 UNIT TABLET PO SCH (08:15)
[2021-02-13] MEDS: PANTOPRAZOLE 40 MG TABLET PO SCH (08:15)
[2021-02-13] MEDS: SEVELAMER CARBONATE 800 MG TABLET PO SCH ×5 (08:15→17:03)
[2021-02-13] MEDS: LINACLOTIDE 145 MCG CAPSULE PO SCH (08:17)
[2021-02-13] MEDS: SODIUM CHLORIDE 0.9% 1,000 ML IV SCH (08:30)
[2021-02-13] MEDS: DOCUSATE SODIUM 100 MG CAPSULE PO SCH ×2 (09:45→22:00)
[2021-02-13] MEDS: FLUCONAZOLE INJ 100 MG/50 ML PREMIX IV SCH (11:51)
[2021-02-13] MEDS: carvediloL 3.125 MG TABLET PO SCH ×2 (14:16→22:00)
[2021-02-13] MEDS: ALBUTEROL INHALER 18 GM INH SCH ×3 (14:16→20:20)
[2021-02-13] MEDS: ATORVASTATIN 20 MG TABLET PO SCH (22:00)
[2021-02-14] MEDS: ALBUTEROL INHALER 18 GM INH SCH ×5 (02:00→19:41)
[2021-02-14 04:55] LABS: ABG Base Excess 3.5 MMOL/L (-2.5-2.5); ABG HCO3 27.5 MMOL/L (20-26); ABG Oxygen Saturation 94.6 % (95-100); ABG PCO2 36.2 MM HG (35-48); ABG PH 7.481 (7.35-7.45); ABG PO2 74.1 MM HG (80-95); Allen Test Positive; Pt O2 Delivery Device BIPAP
[2021-02-14] MEDS: HEPARIN 5,000 UNIT/1 ML VIAL SUBCUT SCH ×2 (06:19→18:52)
[2021-02-14] MEDS: methylPREDNISolone SOD SUC 40 MG/1 ML VIAL IV SCH ×4 (06:19→23:24)
[2021-02-14 07:21] LABS: Basophils % 0.1 % (0.0-0.8); Hematocrit 24.9 VOL% (42.0-52.0); Hemoglobin 8.3 GM/DL (14.0-18.0); Immature Granulocytes % 5.9 %; Immature Granulocytes Absolute 0.44 #; Lymphocytes # 0.4 10*3/uL (1.4-4.0); Lymphocytes % 5.2 % (21.2-54.2); Mean Corpuscular HGB Conc 33.3 GM/DL (32-36); Mean Corpuscular Volume 93.3 FL (87-102); Mean Platelet Volume 9.8 FL (9.6-12.0); Monocytes % 8.7 % (1.7-12.7); Neutrophils % 80.1 % (38.7-73.9); Platelet Count 346 T/CUMM (130-400); Red Blood Count 2.67 MC/CUMM (3.8-5.5); Red Cell Distribution Width 12.4 % (9.3-17.3); White Blood Count 7.5 T/CUMM (4-12)
[2021-02-14 07:38] LABS: Osmolality,Calculated 293.8 MOS/KG (273-304); Potassium 4.4 MMOL/L (3.5-5.1)
[2021-02-14 08:01] LABS: Band Neutrophils 2 % (0-10); Hypochromasia 1+; Lymphocytes 2 % (20-55); Microcytosis 1+; Segmented Neutrophils 92 % (50-85); Total Cells Counted 100
[2021-02-14 08:02] LABS: Platelet Estimate Normal
[2021-02-14] MEDS: SEVELAMER CARBONATE 800 MG TABLET PO SCH ×3 (08:13→16:29)
[2021-02-14] MEDS: DOCUSATE SODIUM 100 MG CAPSULE PO SCH ×2 (08:14→20:55)
[2021-02-14] MEDS: ASPIRIN EC 81 MG TABLET PO SCH (08:14)
[2021-02-14] MEDS: CHOLECALCIFEROL 1,000 UNIT TABLET PO SCH (08:14)
[2021-02-14] MEDS: ZINC GLUCONATE 50 MG TABLET PO SCH (08:14)
[2021-02-14] MEDS: ASCORBIC ACID 500 MG TABLET PO SCH (08:14)
[2021-02-14] MEDS: PANTOPRAZOLE 40 MG TABLET PO SCH (08:14)
[2021-02-14] MEDS: carvediloL 3.125 MG TABLET PO SCH ×2 (08:14→20:54)
[2021-02-14] MEDS: LINACLOTIDE 145 MCG CAPSULE PO SCH (08:15)
[2021-02-14] MEDS: PIPERACILLIN/TAZOBACTAM 3,375 MG in SODIUM CHLORIDE 0.9% 100 ML IV SCH ×2 (08:20→20:54)
[2021-02-14] MEDS: SODIUM CHLORIDE 0.9% 1,000 ML IV SCH (08:21)
[2021-02-14] MEDS: FAMOTIDINE 20 MG TABLET PO SCH (11:13)
[2021-02-14] MEDS: FLUCONAZOLE INJ 100 MG/50 ML PREMIX IV SCH (11:17)
[2021-02-14] MEDS: ATORVASTATIN 20 MG TABLET PO SCH (20:54)
[2021-02-15] MEDS: ALBUTEROL INHALER 18 GM INH SCH ×4 (00:55→19:11)
[2021-02-15 04:30] LABS: ABG HCO3 24.1 MMOL/L (20-26); ABG Oxygen Saturation 91.4 % (95-100); ABG PCO2 32.3 MM HG (35-48); ABG PH 7.491 (7.35-7.45); ABG PO2 65.5 MM HG (80-95); ABG TCO2 25.1 MMOL/L (23-27); Allen Test Positive; Pt O2 Delivery Device Other
[2021-02-15 05:15] LABS: Basophils % 0.1 % (0.0-0.8); Hematocrit 25.2 VOL% (42.0-52.0); Hemoglobin 8.4 GM/DL (14.0-18.0); Immature Granulocytes % 8.4 %; Immature Granulocytes Absolute 0.58 #; Lymphocytes # 0.4 10*3/uL (1.4-4.0); Lymphocytes % 5.4 % (21.2-54.2); Mean Corpuscular HGB Conc 33.3 GM/DL (32-36); Mean Platelet Volume 10.2 FL (9.6-12.0); Monocytes % 7.4 % (1.7-12.7); Neutrophils % 78.7 % (38.7-73.9); Platelet Count 405 T/CUMM (130-400); Red Blood Count 2.71 MC/CUMM (3.8-5.5); Red Cell Distribution Width 12.4 % (9.3-17.3); White Blood Count 6.9 T/CUMM (4-12)
[2021-02-15 05:32] LABS: Calcium 11.1 MG/DL (8.5-10.1); Osmolality,Calculated 305.7 MOS/KG (273-304); Potassium 4.4 MMOL/L (3.5-5.1)
[2021-02-15 05:40] LABS: Lymphocytes 7 % (20-55); Segmented Neutrophils 86 % (50-85); Total Cells Counted 100
[2021-02-15 05:41] LABS: Hypochromasia 1+; Microcytosis 1+; Platelet Estimate Increased
[2021-02-15] MEDS: methylPREDNISolone SOD SUC 40 MG/1 ML VIAL IV SCH ×4 (05:52→21:07)
[2021-02-15] MEDS: HEPARIN 5,000 UNIT/1 ML VIAL SUBCUT SCH ×2 (05:52→17:32)
[2021-02-15] MEDS: SEVELAMER CARBONATE 800 MG TABLET PO SCH ×3 (08:20→16:35)
[2021-02-15] MEDS: ASCORBIC ACID 500 MG TABLET PO SCH (08:29)
[2021-02-15] MEDS: DOCUSATE SODIUM 100 MG CAPSULE PO SCH ×2 (08:29→23:01)
[2021-02-15] MEDS: CHOLECALCIFEROL 1,000 UNIT TABLET PO SCH (08:29)
[2021-02-15] MEDS: FAMOTIDINE 20 MG TABLET PO SCH (08:29)
[2021-02-15] MEDS: ZINC GLUCONATE 50 MG TABLET PO SCH (08:29)
[2021-02-15] MEDS: carvediloL 3.125 MG TABLET PO SCH ×2 (08:29→21:11)
[2021-02-15] MEDS: ASPIRIN EC 81 MG TABLET PO SCH (08:30)
[2021-02-15] MEDS: LINACLOTIDE 145 MCG CAPSULE PO SCH (08:30)
[2021-02-15] MEDS: FLUCONAZOLE INJ 100 MG/50 ML PREMIX IV SCH (13:21)
[2021-02-15] MEDS: PIPERACILLIN/TAZOBACTAM 3,375 MG in SODIUM CHLORIDE 0.9% 100 ML IV SCH ×2 (14:19→21:10)
[2021-02-15] MEDS: ATORVASTATIN 20 MG TABLET PO SCH (21:11)
[2021-02-15] MEDS: SODIUM CHLORIDE 0.9% 1,000 ML IV SCH (23:00)
[2021-02-16] MEDS: ALBUTEROL INHALER 18 GM INH SCH ×4 (01:26→19:00)
[2021-02-16 03:49] LABS: ABG Base Excess 2.8 MMOL/L (-2.5-2.5); ABG HCO3 26.9 MMOL/L (20-26); ABG PCO2 36.3 MM HG (35-48); ABG TCO2 24.4 MMOL/L (23-27); Allen Test Positive; Pt O2 Delivery Device Other
[2021-02-16] MEDS: methylPREDNISolone SOD SUC 40 MG/1 ML VIAL IV SCH ×3 (05:38→17:32)
[2021-02-16] MEDS: HEPARIN 5,000 UNIT/1 ML VIAL SUBCUT SCH ×2 (05:42→17:34)
[2021-02-16 06:02] LABS: Basophils % 0.2 % (0.0-0.8); Hematocrit 28.5 VOL% (42.0-52.0); Hemoglobin 9.7 GM/DL (14.0-18.0); Immature Granulocytes % 8.9 %; Immature Granulocytes Absolute 0.72 #; Lymphocytes # 0.4 10*3/uL (1.4-4.0); Lymphocytes % 4.5 % (21.2-54.2); Mean Corpuscular Volume 92.2 FL (87-102); Mean Platelet Volume 10.1 FL (9.6-12.0); Monocytes % 8.1 % (1.7-12.7); Neutrophils % 78.3 % (38.7-73.9); Platelet Count 432 T/CUMM (130-400); Red Blood Count 3.09 MC/CUMM (3.8-5.5); Red Cell Distribution Width 12.4 % (9.3-17.3); White Blood Count 8.1 T/CUMM (4-12)
[2021-02-16 06:32] LABS: Calcium 10.9 MG/DL (8.5-10.1); Osmolality,Calculated 297.7 MOS/KG (273-304); Potassium 4.6 MMOL/L (3.5-5.1)
[2021-02-16 06:34] LABS: Lymphocytes 8 % (20-55); Platelet Estimate Increased; Segmented Neutrophils 86 % (50-85); Total Cells Counted 100
[2021-02-16] MEDS: SEVELAMER CARBONATE 800 MG TABLET PO SCH ×3 (09:26→16:37)
[2021-02-16] MEDS: PIPERACILLIN/TAZOBACTAM 3,375 MG in SODIUM CHLORIDE 0.9% 100 ML IV SCH ×2 (09:27→21:36)
[2021-02-16] MEDS: CHOLECALCIFEROL 1,000 UNIT TABLET PO SCH (09:28)
[2021-02-16] MEDS: ZINC GLUCONATE 50 MG TABLET PO SCH (09:28)
[2021-02-16] MEDS: ASPIRIN EC 81 MG TABLET PO SCH (09:28)
[2021-02-16] MEDS: DOCUSATE SODIUM 100 MG CAPSULE PO SCH ×2 (09:28→20:26)
[2021-02-16] MEDS: LINACLOTIDE 145 MCG CAPSULE PO SCH (09:28)
[2021-02-16] MEDS: FAMOTIDINE 20 MG TABLET PO SCH (09:28)
[2021-02-16] MEDS: carvediloL 3.125 MG TABLET PO SCH ×2 (09:28→20:47)
[2021-02-16] MEDS: ASCORBIC ACID 500 MG TABLET PO SCH (09:28)
[2021-02-16] MEDS: FLUCONAZOLE INJ 100 MG/50 ML PREMIX IV SCH (10:38)
[2021-02-16] MEDS: ATORVASTATIN 20 MG TABLET PO SCH (20:47)
[2021-02-17] MEDS: methylPREDNISolone SOD SUC 40 MG/1 ML VIAL IV SCH ×3 (00:10→10:43)
[2021-02-17] MEDS: ALBUTEROL INHALER 18 GM INH SCH ×4 (00:10→19:35)
[2021-02-17 04:30] LABS: ABG Base Excess -0.4 MMOL/L (-2.5-2.5); ABG HCO3 23.2 MMOL/L (20-26); ABG Oxygen Saturation 95.9 % (95-100); ABG PCO2 34.6 MM HG (35-48); ABG PH 7.445 (7.35-7.45); ABG PO2 90.7 MM HG (80-95); ABG TCO2 24.3 MMOL/L (23-27); Allen Test Positive; Pt O2 Delivery Device Other
[2021-02-17] MEDS: HEPARIN 5,000 UNIT/1 ML VIAL SUBCUT SCH ×2 (05:50→17:19)
[2021-02-17 06:11] LABS: Basophils % 0.1 % (0.0-0.8); Hemoglobin 8.4 GM/DL (14.0-18.0); Immature Granulocytes % 7.1 %; Immature Granulocytes Absolute 0.59 #; Lymphocytes # 0.3 10*3/uL (1.4-4.0); Lymphocytes % 3.5 % (21.2-54.2); Mean Corpuscular HGB Conc 32.3 GM/DL (32-36); Mean Corpuscular Volume 94.2 FL (87-102); Mean Platelet Volume 10.4 FL (9.6-12.0); Monocytes % 6.1 % (1.7-12.7); Neutrophils % 83.2 % (38.7-73.9); Platelet Count 407 T/CUMM (130-400); Red Blood Count 2.76 MC/CUMM (3.8-5.5); Red Cell Distribution Width 12.8 % (9.3-17.3); White Blood Count 8.4 T/CUMM (4-12)
[2021-02-17 06:35] LABS: Calcium 10.9 MG/DL (8.5-10.1); Osmolality,Calculated 303.1 MOS/KG (273-304); Potassium 5.1 MMOL/L (3.5-5.1)
[2021-02-17 06:38] LABS: Band Neutrophils 1 % (0-10); Hypochromasia 1+; Lymphocytes 4 % (20-55); Microcytosis 1+; Platelet Estimate Adequate; Segmented Neutrophils 86 % (50-85); Total Cells Counted 100
[2021-02-17] MEDS: SEVELAMER CARBONATE 800 MG TABLET PO SCH ×3 (08:20→16:46)
[2021-02-17] MEDS: PIPERACILLIN/TAZOBACTAM 3,375 MG in SODIUM CHLORIDE 0.9% 100 ML IV SCH ×2 (09:16→21:45)
[2021-02-17] MEDS: FAMOTIDINE 20 MG TABLET PO SCH (09:17)
[2021-02-17] MEDS: LINACLOTIDE 145 MCG CAPSULE PO SCH (09:17)
[2021-02-17] MEDS: ASCORBIC ACID 500 MG TABLET PO SCH (09:17)
[2021-02-17] MEDS: ASPIRIN EC 81 MG TABLET PO SCH (09:17)
[2021-02-17] MEDS: DOCUSATE SODIUM 100 MG CAPSULE PO SCH ×2 (09:17→23:05)
[2021-02-17] MEDS: carvediloL 3.125 MG TABLET PO SCH ×2 (09:17→21:50)
[2021-02-17] MEDS: ZINC GLUCONATE 50 MG TABLET PO SCH (09:17)
[2021-02-17] MEDS: CHOLECALCIFEROL 1,000 UNIT TABLET PO SCH (09:17)
[2021-02-17] MEDS: ATORVASTATIN 20 MG TABLET PO SCH (21:50)
[2021-02-18] MEDS: ALBUTEROL INHALER 18 GM INH SCH ×3 (01:34→13:59)
[2021-02-18 04:07] LABS: Basophils % 0.1 % (0.0-0.8); Hematocrit 27.7 VOL% (42.0-52.0); Hemoglobin 8.9 GM/DL (14.0-18.0); Immature Granulocytes % 6.2 %; Immature Granulocytes Absolute 0.61 #; Lymphocytes # 0.3 10*3/uL (1.4-4.0); Lymphocytes % 2.7 % (21.2-54.2); Mean Corpuscular HGB Conc 32.1 GM/DL (32-36); Mean Corpuscular Volume 93.6 FL (87-102); Mean Platelet Volume 10.1 FL (9.6-12.0); Platelet Count 421 T/CUMM (130-400); Red Blood Count 2.96 MC/CUMM (3.8-5.5); Red Cell Distribution Width 12.9 % (9.3-17.3); White Blood Count 9.8 T/CUMM (4-12)
[2021-02-18 04:12] LABS: ABG Base Excess -3.1 MMOL/L (-2.5-2.5); ABG HCO3 20.4 MMOL/L (20-26); ABG Oxygen Saturation 90.4 % (95-100); ABG PCO2 30.3 MM HG (35-48); ABG PH 7.445 (7.35-7.45); ABG PO2 65.6 MM HG (80-95); ABG TCO2 21.3 MMOL/L (23-27)
[2021-02-18 04:34] LABS: Calcium 10.8 MG/DL (8.5-10.1); Osmolality,Calculated 319.7 MOS/KG (273-304)
[2021-02-18] MEDS: SODIUM CHLORIDE 0.9% 1,000 ML IV SCH (04:35)
[2021-02-18 04:38] LABS: Potassium 6.2 MMOL/L (3.5-5.1)
[2021-02-18 04:41] LABS: Hypochromasia Slight; Lymphocytes 3 % (20-55); Platelet Estimate Increased; Segmented Neutrophils 89 % (50-85); Total Cells Counted 100
[2021-02-18] MEDS ORDERED: INSULIN REGULAR 10 UNIT, CALCIUM GLUCONATE 1,000 MG in DEXTROSE 10% 250 ML IV ONE (05:30)
[2021-02-18] MEDS: HEPARIN 5,000 UNIT/1 ML VIAL SUBCUT SCH (05:46)
[2021-02-18 08:04] VITALS: BP 145/65
[2021-02-18] MEDS ORDERED: predniSONE 50 MG TABLET PO SCH (09:00)
[2021-02-18] MEDS: SEVELAMER CARBONATE 800 MG TABLET PO SCH ×2 (09:47→13:53)
[2021-02-18] MEDS: carvediloL 3.125 MG TABLET PO SCH (09:49)
[2021-02-18] MEDS: DOCUSATE SODIUM 100 MG CAPSULE PO SCH (09:49)
[2021-02-18] MEDS: LINACLOTIDE 145 MCG CAPSULE PO SCH (09:49)
[2021-02-18] MEDS: FAMOTIDINE 20 MG TABLET PO SCH (09:49)
[2021-02-18] MEDS: ASPIRIN EC 81 MG TABLET PO SCH (09:49)
[2021-02-18] MEDS: ASCORBIC ACID 500 MG TABLET PO SCH (09:50)
[2021-02-18] MEDS: CHOLECALCIFEROL 1,000 UNIT TABLET PO SCH (09:50)
[2021-02-18] MEDS: ZINC GLUCONATE 50 MG TABLET PO SCH (09:51)
== END 2021-02-18 15:40 | disposition swing bed (61) | DRG 177 ==
LOC: N.ED 15:11 → SUATTDRO 17:40 → N.EDINP 17:40 → N.3E 18:53 → N.ICU 02-12 03:56 → N.CC 02-13 20:55 → N.2E 02-14 13:12
PROVIDERS: ADMIT Internal Medicine; ATTEND Internal Medicine

== ENCOUNTER 2021-03-06 18:38 | Observation (INO) ==
[2021-03-06 20:49] LABS: Basophils % 0.2 % (0.0-0.8); Eosinophils # 0.2 10*3/uL (0.0-0.87); Hematocrit 20.8 VOL% (42.0-52.0); Hemoglobin 6.5 GM/DL (14.0-18.0); Immature Granulocytes % 0.8 %; Immature Granulocytes Absolute 0.04 #; Lymphocytes # 0.6 10*3/uL (1.4-4.0); Lymphocytes % 12.5 % (21.2-54.2); Mean Corpuscular HGB Conc 31.3 GM/DL (32-36); Mean Corpuscular Volume 97.2 FL (87-102); Mean Platelet Volume 10.1 FL (9.6-12.0); Monocytes % 9.7 % (1.7-12.7); Neutrophils % 73.8 % (38.7-73.9); Platelet Count 192 T/CUMM (130-400); Red Blood Count 2.14 MC/CUMM (3.8-5.5); Red Cell Distribution Width 13.2 % (9.3-17.3); White Blood Count 5.1 T/CUMM (4-12)
[2021-03-06] MEDS ORDERED: ASPIRIN EC 325 MG TABLET PO ONE (21:04)
[2021-03-06] MEDS ORDERED: diphenhydrAMINE 50 MG/1 ML VIAL ONE (21:04)
[2021-03-06 21:06] LABS: Albumin 2.7 G/DL (3.4-5.0); Bilirubin,Total 0.6 MG/DL (0.20-1.00); Calcium 9.4 MG/DL (8.5-10.1); Osmolality,Calculated 271.8 MOS/KG (273-304); Potassium 3.5 MMOL/L (3.5-5.1); Total Protein 5.7 G/DL (6.4-8.2)
[2021-03-06] MEDS ORDERED: HYDROmorphone 2 MG/1 ML VIAL IV STA (21:17)
[2021-03-06] MEDS ORDERED: ASPIRIN EC 325 MG TABLET PO STA (21:18)
[2021-03-06] MEDS ORDERED: hydrALAZINE 20 MG/1 ML VIAL IV PRN (21:55)
[2021-03-06] MEDS ORDERED: ONDANSETRON 4 MG/2 ML VIAL IV PRN (21:55)
[2021-03-06] MEDS ORDERED: ACETAMINOPHEN 325 MG TABLET PO PRN (21:55)
[2021-03-06] MEDS ORDERED: ZALEPLON 5 MG CAPSULE PO PRN (21:55)
[2021-03-06] MEDS ORDERED: SODIUM CHLORIDE 0.9% 1,000 ML IV PRN (22:01)
[2021-03-06] MEDS ORDERED: HYDROmorphone 2 MG/1 ML VIAL IV PRN (23:08)
[2021-03-07] MEDS ORDERED: POTASSIUM CHLORIDE 20 MEQ TABLET PO ONE (07:26)
[2021-03-07] MEDS ORDERED: SODIUM CHLORIDE 0.9% 1,000 ML IV PRN ×2 (08:46→15:07)
[2021-03-07 08:52] LABS: Basophils % 0.3 % (0.0-0.8); Eosinophils # 0.2 10*3/uL (0.0-0.87); Eosinophils % 4.5 % (0.00-10.9); Hematocrit 23.3 VOL% (42.0-52.0); Hemoglobin 7.3 GM/DL (14.0-18.0); Immature Granulocytes Absolute 0.04 #; Lymphocytes # 0.5 10*3/uL (1.4-4.0); Lymphocytes % 13.3 % (21.2-54.2); Mean Corpuscular HGB Conc 31.3 GM/DL (32-36); Mean Corpuscular Volume 96.7 FL (87-102); Mean Platelet Volume 9.6 FL (9.6-12.0); Neutrophils % 69.9 % (38.7-73.9); Platelet Count 182 T/CUMM (130-400); Red Blood Count 2.41 MC/CUMM (3.8-5.5); Red Cell Distribution Width 13.9 % (9.3-17.3)
[2021-03-07] MEDS ORDERED: ATORVASTATIN 40 MG TABLET PO SCH (09:00)
[2021-03-07] MEDS ORDERED: CINACALCET 30 MG TABLET PO SCH (09:00)
[2021-03-07] MEDS ORDERED: carvediloL 3.125 MG TABLET PO SCH (09:00)
[2021-03-07] MEDS ORDERED: PANTOPRAZOLE 40 MG TABLET PO SCH (09:00)
[2021-03-07 09:12] LABS: Eosinophils 5 % (0-10); Hypochromasia 1+; Lymphocytes 13 % (20-55); Microcytosis 1+; Platelet Estimate Adequate; Segmented Neutrophils 74 % (50-85); Total Cells Counted 100
[2021-03-07 09:14] LABS: Risk Ratio 3.78
[2021-03-07] MEDS: ASPIRIN EC 81 MG TABLET PO SCH (12:10)
[2021-03-07] MEDS: ASCORBIC ACID 500 MG TABLET PO SCH (12:11)
[2021-03-07] MEDS: carvediloL 6.25 MG TABLET PO SCH ×2 (12:14→20:21)
[2021-03-07] MEDS: SEVELAMER CARBONATE 800 MG TABLET PO SCH ×2 (15:47→19:25)
[2021-03-07] MEDS: ALBUTEROL INHALER 18 GM INH SCH ×2 (17:32→20:23)
[2021-03-07] MEDS: CINACALCET 30 MG TABLET PO SCH (17:36)
[2021-03-07] MEDS: ATORVASTATIN 40 MG TABLET PO SCH (20:21)
[2021-03-07] MEDS ORDERED: ATORVASTATIN 20 MG TABLET PO SCH (21:00)
[2021-03-07 22:16] LABS: Hematocrit 23.7 VOL% (42.0-52.0); Hemoglobin 7.7 GM/DL (14.0-18.0)
[2021-03-08 07:04] LABS: Hematocrit 24.5 VOL% (42.0-52.0)
[2021-03-08 07:06] LABS: Basophils % 0.4 % (0.0-0.8); Eosinophils # 0.2 10*3/uL (0.0-0.87); Eosinophils % 3.4 % (0.00-10.9); Hematocrit 24.8 VOL% (42.0-52.0); Immature Granulocytes Absolute 0.05 #; Lymphocytes # 0.5 10*3/uL (1.4-4.0); Lymphocytes % 10.5 % (21.2-54.2); Mean Corpuscular HGB Conc 32.3 GM/DL (32-36); Mean Corpuscular Volume 94.3 FL (87-102); Mean Platelet Volume 10.1 FL (9.6-12.0); Monocytes % 11.5 % (1.7-12.7); Neutrophils % 73.2 % (38.7-73.9); Platelet Count 184 T/CUMM (130-400); Red Blood Count 2.63 MC/CUMM (3.8-5.5); Red Cell Distribution Width 14.3 % (9.3-17.3)
[2021-03-08 07:22] LABS: Osmolality,Calculated 283.5 MOS/KG (273-304); Potassium 4.7 MMOL/L (3.5-5.1)
[2021-03-08 07:37] LABS: Anisocytosis 2+; Band Neutrophils 2 % (0-10); Eosinophils 4 % (0-10); Lymphocytes 13 % (20-55); Platelet Estimate Normal; Segmented Neutrophils 72 % (50-85); Total Cells Counted 100
[2021-03-08 07:38] LABS: Macrocytosis Slight
[2021-03-08] MEDS ORDERED: PANTOPRAZOLE 40 MG TABLET PO SCH (09:00)
[2021-03-08] MEDS: ASCORBIC ACID 500 MG TABLET PO SCH (09:40)
[2021-03-08] MEDS: ATORVASTATIN 40 MG TABLET PO SCH (12:53)
[2021-03-08] MEDS: ASPIRIN EC 81 MG TABLET PO SCH (12:53)
[2021-03-08] MEDS: carvediloL 6.25 MG TABLET PO SCH (12:53)
[2021-03-08] MEDS: SEVELAMER CARBONATE 800 MG TABLET PO SCH ×2 (12:53→18:19)
[2021-03-08] MEDS: CINACALCET 30 MG TABLET PO SCH (12:54)
[2021-03-08] MEDS: ALBUTEROL INHALER 18 GM INH SCH (16:54)
[2021-03-08] MEDS ORDERED: CINACALCET 30 MG TABLET PO SCH (17:00)
[2021-03-08 17:15] VITALS: BP 138/53
[2021-03-08] MEDS ORDERED: ATORVASTATIN 40 MG TABLET PO SCH (21:00)
== END 2021-03-08 18:17 | disposition home or self-care (01) ==
LOC: N.ED 18:38 → N.EDINP 18:38 → SUATTDRO 21:55 → N.TELEN 23:57
PROVIDERS: ADMIT Internal Medicine; ATTEND Internal Medicine

== ENCOUNTER 2021-12-18 04:39 | Observation (INO) ==
[2021-12-18 05:00] LABS: Basophils # 0.1 10*3/uL (0.0-0.2); Eosinophils # 0.3 10*3/uL (0.0-0.87); Eosinophils % 4.7 % (0.00-10.9); Hematocrit 32.5 VOL% (42.0-52.0); Hemoglobin 10.6 GM/DL (14.0-18.0); Immature Granulocytes % 0.5 %; Immature Granulocytes Absolute 0.03 #; Lymphocytes % 16.1 % (21.2-54.2); Mean Corpuscular HGB Conc 32.6 GM/DL (32-36); Mean Corpuscular Volume 96.4 FL (87-102); Mean Platelet Volume 9.7 FL (9.6-12.0); Monocytes # 0.7 10*3/uL (0.11-0.8); Monocytes % 11.7 % (1.7-12.7); Platelet Count 191 T/CUMM (130-400); Red Blood Count 3.37 MC/CUMM (3.8-5.5); Red Cell Distribution Width 13.6 % (9.3-17.3)
[2021-12-18 05:11] LABS: PT Patient Result 10.7 SECS (10.5-12.0); Partial Thromboplastin Time 27.4 SECS (23.8-32.1)
[2021-12-18 05:48] LABS: Albumin 3.5 G/DL (3.4-5.0); Bilirubin,Total 0.5 MG/DL (0.20-1.00); Calcium 9.6 MG/DL (8.5-10.1); Osmolality,Calculated 292.1 MOS/KG (273-304); Potassium 3.9 MMOL/L (3.5-5.1); Total Protein 6.9 G/DL (6.4-8.2)
[2021-12-18] MEDS ORDERED: ONDANSETRON 4 MG/2 ML VIAL IV PRN (08:33)
[2021-12-18] MEDS ORDERED: GLUCAGON 1 MG VIAL IM PRN (08:33)
[2021-12-18] MEDS ORDERED: DEXTROSE 10% 250 ML BAG IV PRN (08:55)
[2021-12-18 08:58] LABS: Risk Ratio 4.96; VLDL Cholesterol 61.6 MG/DL
[2021-12-18] MEDS: carvediloL 6.25 MG TABLET PO SCH ×2 (10:00→21:53)
[2021-12-18] MEDS: ASPIRIN EC 81 MG TABLET PO SCH (10:00)
[2021-12-18] MEDS: TICAGRELOR 90 MG TABLET PO SCH ×2 (10:00→21:53)
[2021-12-18] MEDS: CINACALCET 30 MG TABLET PO SCH (10:01)
[2021-12-18] MEDS: PANTOPRAZOLE 40 MG TABLET PO SCH (10:01)
[2021-12-18] MEDS: HEPARIN 5,000 UNIT/1 ML VIAL SUBCUT SCH ×2 (10:01→21:53)
[2021-12-18] MEDS: ISOSORBIDE MONONITRATE 30 MG TABLET PO SCH (10:01)
[2021-12-18] MEDS ORDERED: DIAZEPAM 5 MG TABLET PO ONE (10:32)
[2021-12-18] MEDS ORDERED: diphenhydrAMINE CAP 50 MG CAPSULE PO ONE (10:32)
[2021-12-18] MEDS ORDERED: HEPARIN/NACL 0.9% 2 UNITS/ML 2,000 UNIT/1,000 ML BAG IV ONE (10:33)
[2021-12-18] MEDS ORDERED: diphenhydrAMINE CAP 25 MG CAPSULE ONE (10:53)
[2021-12-18] MEDS ORDERED: MIDAZOLAM 2 MG/2 ML VIAL ONE ×3 (11:28→12:15)
[2021-12-18] MEDS ORDERED: diphenhydrAMINE 50 MG/1 ML VIAL ONE (11:38)
[2021-12-18] MEDS ORDERED: BIVALIRUDIN 250 MG VIAL IV ONE (12:01)
[2021-12-18] MEDS ORDERED: PROMETHAZINE 25 MG/1 ML VIAL ONE (12:31)
[2021-12-18] MEDS ORDERED: fentaNYL 100 MCG/2 ML VIAL ONE (13:18)
[2021-12-18] MEDS ORDERED: HEPARIN/NACL 0.9% 2 UNITS/ML 1,000 UNIT/500 ML BAG IV ONE (13:55)
[2021-12-18] MEDS ORDERED: ZALEPLON 5 MG CAPSULE PO PRN (14:20)
[2021-12-18] MEDS ORDERED: NITROGLYCERIN SL 0.4 MG TABLET SL PRN (14:24)
[2021-12-18] MEDS: SEVELAMER CARBONATE 800 MG TABLET PO SCH (16:33)
[2021-12-18] MEDS: ATORVASTATIN 40 MG TABLET PO SCH (21:53)
[2021-12-18] MEDS: ACETAMINOPHEN 325 MG TABLET PO PRN (23:08)
[2021-12-19 04:10] LABS: Basophils % 0.6 % (0.0-0.8); Eosinophils # 0.2 10*3/uL (0.0-0.87); Eosinophils % 2.6 % (0.00-10.9); Hematocrit 28.8 VOL% (42.0-52.0); Hemoglobin 9.3 GM/DL (14.0-18.0); Immature Granulocytes % 0.7 %; Immature Granulocytes Absolute 0.05 #; Lymphocytes # 0.8 10*3/uL (1.4-4.0); Lymphocytes % 11.5 % (21.2-54.2); Mean Corpuscular HGB Conc 32.3 GM/DL (32-36); Mean Platelet Volume 9.5 FL (9.6-12.0); Monocytes # 0.7 10*3/uL (0.11-0.8); Monocytes % 9.7 % (1.7-12.7); Neutrophils % 74.9 % (38.7-73.9); Platelet Count 176 T/CUMM (130-400); Red Blood Count 3.03 MC/CUMM (3.8-5.5); White Blood Count 6.9 T/CUMM (4-12)
[2021-12-19 04:52] LABS: Calcium 9.7 MG/DL (8.5-10.1); Osmolality,Calculated 276.8 MOS/KG (273-304); Potassium 4.1 MMOL/L (3.5-5.1)
[2021-12-19] MEDS ORDERED: CINACALCET 30 MG TABLET PO SCH ×2 (09:00→17:00)
[2021-12-19] MEDS: PANTOPRAZOLE 40 MG TABLET PO SCH (09:21)
[2021-12-19] MEDS: ASPIRIN EC 81 MG TABLET PO SCH (09:21)
[2021-12-19] MEDS: SEVELAMER CARBONATE 800 MG TABLET PO SCH ×3 (09:21→16:25)
[2021-12-19] MEDS: carvediloL 6.25 MG TABLET PO SCH ×2 (09:21→20:39)
[2021-12-19] MEDS: ISOSORBIDE MONONITRATE 30 MG TABLET PO SCH (09:21)
[2021-12-19] MEDS: HEPARIN 5,000 UNIT/1 ML VIAL SUBCUT SCH ×2 (09:21→20:39)
[2021-12-19] MEDS: TICAGRELOR 90 MG TABLET PO SCH ×2 (09:21→20:39)
[2021-12-19] MEDS ORDERED: THROMBIN TOPICAL (RECOMBINANT) 5,000 UNIT VIAL TOP ONE (11:23)
[2021-12-19] MEDS: ACETAMINOPHEN 325 MG TABLET PO PRN (13:21)
[2021-12-19] MEDS: ATORVASTATIN 40 MG TABLET PO SCH (20:39)
[2021-12-20 07:59] LABS: Basophils % 0.3 % (0.0-0.8); Eosinophils # 0.4 10*3/uL (0.0-0.87); Eosinophils % 5.7 % (0.00-10.9); Immature Granulocytes % 0.8 %; Immature Granulocytes Absolute 0.05 #; Lymphocytes # 0.7 10*3/uL (1.4-4.0); Lymphocytes % 10.2 % (21.2-54.2); Mean Corpuscular HGB Conc 33.3 GM/DL (32-36); Mean Corpuscular Volume 94.1 FL (87-102); Mean Platelet Volume 9.4 FL (9.6-12.0); Monocytes # 0.6 10*3/uL (0.11-0.8); Monocytes % 9.6 % (1.7-12.7); Neutrophils % 73.4 % (38.7-73.9); Platelet Count 162 T/CUMM (130-400); Red Blood Count 2.87 MC/CUMM (3.8-5.5); Red Cell Distribution Width 14.2 % (9.3-17.3); White Blood Count 6.4 T/CUMM (4-12)
[2021-12-20 08:18] LABS: Calcium 9.7 MG/DL (8.5-10.1); Osmolality,Calculated 284.7 MOS/KG (273-304); Potassium 4.2 MMOL/L (3.5-5.1)
[2021-12-20] MEDS: ASPIRIN EC 81 MG TABLET PO SCH (08:53)
[2021-12-20] MEDS: PANTOPRAZOLE 40 MG TABLET PO SCH (08:53)
[2021-12-20] MEDS: HEPARIN 5,000 UNIT/1 ML VIAL SUBCUT SCH (08:53)
[2021-12-20] MEDS: ISOSORBIDE MONONITRATE 30 MG TABLET PO SCH (08:54)
[2021-12-20] MEDS: carvediloL 6.25 MG TABLET PO SCH (08:54)
[2021-12-20] MEDS: TICAGRELOR 90 MG TABLET PO SCH (08:54)
[2021-12-20] MEDS: CINACALCET 30 MG TABLET PO SCH (10:42)
[2021-12-20] MEDS: SEVELAMER CARBONATE 800 MG TABLET PO SCH ×2 (10:42→11:45)
[2021-12-20 13:47] VITALS: BP 94/55
== END 2021-12-20 13:14 | disposition home or self-care (01) ==
LOC: N.ED 04:39 → N.EDINP 04:39 → N.TELES 11:15
PROVIDERS: ADMIT Internal Medicine; ATTEND Internal Medicine
PROC: CLCCHCL (ICD-10-PCS; 2021-12-18 11:15)